=== PATIENT | female | born 1940 | race Caucasian/White ===

== ENCOUNTER → 2024-03-04 15:06 | Outpatient (REF) | payer MEDICARE, OTHER, SELFPAY | LOC: HWWDC 15:06 | PROVIDERS: ATTENDING PHYSICIAN Physician Assistant | DX: Z12.31 Encounter for screening mammogram for malignant neoplasm of breast (principal) | CPT/HCPCS: 77063; 77067 ==

== ENCOUNTER → 2024-03-09 12:12 | Outpatient (REF) | payer MEDICARE, OTHER, SELFPAY ==
[2024-03-09 15:51] LABS: % Basophils 0.6 % (0-2); % Eosinophils 1.8 % (0-6); % Immature Granulocytes 0.4 % (0-0.5); % Lymphocytes 30.3 % (20.5-51.1); % Monocytes 8.9 % (1.7-9.3); Absolute Basophils 0.1 10^3/uL (0-0.2); Absolute Eosinophils 0.2 10^3/uL (0-0.7); Absolute Lymphocytes 2.5 10^3/uL (1.2-3.4); Absolute Monocytes 0.8 10^3/uL (0.1-0.6); Absolute Neutrophils 4.9 10^3/uL (1.4-6.5); Hematocrit 37.2 % (37.0-47.0); Hemoglobin 13.2 g/dL (12.0-16.0); Mean Corp Hgb Conc. 35.5 g/dL (33.0-37.0); Mean Corpuscular Hgb 30.1 pg (27.0-31.0); Mean Corpuscular Volume 84.7 fL (81.0-99.0); Mean Platelet Volume 10.4 fL (7.4-10.4); Nucleated Red Blood Cells % 0 %; Platelet Count 300 10^3/uL (130-400); Red Blood Cell Count 4.39 10^6/uL (4.20-5.40); Red Cell Dist. Width 12.8 % (11.5-14.5); White Blood Cell Count 8.4 10^3/uL (4.8-10.8)
[2024-03-09 15:59] LABS: ALT (SGPT) 18 U/L (0-35); AST (SGOT) 25 U/L (14-36); Albumin 4.1 g/dl (3.5-5.0); Alkaline Phosphatase 42 U/L (38-126); Blood Urea Nitrogen 18 mg/dl (7-17); Calcium 9.5 mg/dl (8.4-10.2); Carbon Dioxide 30 mmol/L (22-30); Chloride 91 mmol/L (98-107); Glucose 134 mg/dl (70-99); HDL Cholesterol 85 mg/dl; LDL Cholesterol, Calculated 70 mg/dl; Potassium 3.7 mmol/L (3.5-5.1); Sodium 127 mmol/L (135-145); Total Bilirubin 1.3 mg/dl (0.2-1.3); Total Cholesterol 170 mg/dl (50-199); Total Protein 6.5 g/dl (6.3-8.2); Triglyceride 77 mg/dl (10-149); Very Low Density Lipoprotein 15 mg/dl (0-30); eGFR > 60.00
[2024-03-09 16:09] LABS: Microalbumin, Random Urine 0.9 mg/dl (0.6-1.7)
[2024-03-09 16:30] LABS: TSH Reflex To Free T4 1.15 uIU/ml (0.47-4.68)
[2024-03-10 09:41] LABS: Glycohemoglobin (HgbA1c) 6.6 % (4.0-5.6)
== END ==
LOC: HWLAB 12:12
PROVIDERS: ATTENDING PHYSICIAN Physician Assistant
DX: I10 Essential (primary) hypertension (principal); E78.00 Pure hypercholesterolemia, unspecified; E11.9 Type 2 diabetes mellitus without complications; F41.8 Other specified anxiety disorders; G62.9 Polyneuropathy, unspecified
CPT/HCPCS: 36415; 80053; 80061; 82043; 83036; 84443; 85025

== ENCOUNTER → 2024-06-15 11:39 | Outpatient (REF) | payer MEDICARE, OTHER, SELFPAY ==
[2024-06-15 15:39] LABS: Hematocrit 37.6 % (37.0-47.0); Hemoglobin 13.3 g/dL (12.0-16.0); Mean Corp Hgb Conc. 35.4 g/dL (33.0-37.0); Mean Corpuscular Hgb 30.9 pg (27.0-31.0); Mean Corpuscular Volume 87.2 fL (81.0-99.0); Mean Platelet Volume 10.2 fL (7.4-10.4); Platelet Count 282 10^3/uL (130-400); Red Blood Cell Count 4.31 10^6/uL (4.20-5.40); Red Cell Dist. Width 12.7 % (11.5-14.5); White Blood Cell Count 8.3 10^3/uL (4.8-10.8)
[2024-06-15 15:48] LABS: ALT (SGPT) 21 U/L (0-35); AST (SGOT) 25 U/L (14-36); Albumin 3.9 g/dl (3.5-5.0); Alkaline Phosphatase 36 U/L (38-126); Blood Urea Nitrogen 18 mg/dl (7-17); Calcium 9.5 mg/dl (8.4-10.2); Carbon Dioxide 30 mmol/L (22-30); Chloride 93 mmol/L (98-107); Glucose 137 mg/dl (70-99); HDL Cholesterol 97 mg/dl; LDL Cholesterol, Calculated 63 mg/dl; Potassium 4.1 mmol/L (3.5-5.1); Sodium 134 mmol/L (135-145); Total Bilirubin 1.2 mg/dl (0.2-1.3); Total Cholesterol 178 mg/dl (50-199); Total Protein 6.7 g/dl (6.3-8.2); Triglyceride 94 mg/dl (10-149); Very Low Density Lipoprotein 18 mg/dl (0-30); eGFR > 60.00
[2024-06-15 16:02] LABS: Protein/creatinine Ratio 0.2; Urine Protein 10 mg/dl
[2024-06-15 16:08] LABS: Microalbumin, Random Urine < 0.6 mg/dl (0.6-1.7)
[2024-06-15 16:19] LABS: TSH 1.48 uIU/ml (0.47-4.68)
[2024-06-16 09:34] LABS: Glycohemoglobin (HgbA1c) 6.5 % (4.0-5.6)
== END ==
LOC: HWLAB 11:39
PROVIDERS: ATTENDING PHYSICIAN Physician Assistant; FAMILY PHYSICIAN Physician Assistant
DX: E11.65 Type 2 diabetes mellitus with hyperglycemia (principal)
CPT/HCPCS: 36415; 80053; 80061; 82043; 82570; 83036; 84156; 84443; 85027

== ENCOUNTER 2024-07-05 12:00 | Emergency (ER) | payer MEDICARE, OTHER, SELFPAY ==
[2024-07-05 12:04] VITALS: BP 131/51
[2024-07-05 12:21] LABS: % Basophils 0.2 % (0-2); % Eosinophils 0.7 % (0-6); % Immature Granulocytes 0.4 % (0-0.5); % Monocytes 6.3 % (1.7-9.3); % Neutrophils 68.4 % (42.2-75.2); Absolute Eosinophils 0.1 10^3/uL (0-0.7); Absolute Lymphocytes 2.3 10^3/uL (1.2-3.4); Absolute Monocytes 0.6 10^3/uL (0.1-0.6); Absolute Neutrophils 6.5 10^3/uL (1.4-6.5); Hematocrit 37.6 % (37.0-47.0); Hemoglobin 13.7 g/dL (12.0-16.0); Mean Corp Hgb Conc. 36.4 g/dL (33.0-37.0); Mean Corpuscular Hgb 30.6 pg (27.0-31.0); Mean Corpuscular Volume 84.1 fL (81.0-99.0); Nucleated Red Blood Cells % 0 %; Platelet Count 251 10^3/uL (130-400); Red Blood Cell Count 4.47 10^6/uL (4.20-5.40); White Blood Cell Count 9.5 10^3/uL (4.8-10.8)
[2024-07-05 12:52] LABS: ALT (SGPT) 20 U/L (0-35); AST (SGOT) 24 U/L (14-36); Albumin 4.2 g/dl (3.5-5.0); Alkaline Phosphatase 33 U/L (38-126); Blood Urea Nitrogen 23 mg/dl (7-17); Carbon Dioxide 31 mmol/L (22-30); Chloride 90 mmol/L (98-107); Glucose 218 mg/dl (70-99); Potassium 3.9 mmol/L (3.5-5.1); Sodium 131 mmol/L (135-145); Total Bilirubin 1.7 mg/dl (0.2-1.3); Total Protein 6.7 g/dl (6.3-8.2); eGFR > 60.00
--- NOTE | 2024-07-05 14:51 | ED.GENMED ---
History of Present Illness
General
Chief Complaint: Fainting/Passed Out
Source: patient and family
Time Seen by Provider: 07/05/24 14:33
History of Present Illness
History of Present Illness:
This patient is an 83-year-old female who was in [place] today feeling perfectly well before she got there. She was listening to the sermon and started to feel diaphoretic, 'hot' and lightheaded like she might pass out. She alerted her daughter who
gave her some water. Her symptoms continued and she laid her head down. She insist that there was no actual loss of consciousness although her daughter thinks that she may have for a few seconds and she noted that she moved her left arm for a few
seconds as well. There was no incontinence or confusion. Patient denies any complaints preceding this, and thereafter. She denies headache, neck pain, back pain, chest pain or pressure, dyspnea, abdominal pain, numbness, tingling, focal weakness,
fever, chills, palpitations, or other complaint.
Past History
Past History
ED Past Medical History: Arrthythmia and Hypercholesterolemia
Social History
Tobacco: Non-smoker
Alcohol: None
Drug: None
Personal:
Living: with family
Family History
Family History: Other (Noncontributory)
Phy Exam
Physical Exam
Physical Exam:
GENERAL: Alert , in no apparent distress
EYE: pupils equal and reactive, no photophobia, EOMI
NECK: Supple, no significant adenopathy.
ENT: o/p clr, mmm.
CARDIAC: Regular rate and rhythm .
LUNGS: Clear breath sounds bilaterally, no acute respiratory distress, no wheezes/rales/rhonchi
ABDOMEN: Soft, without focal tenderness, no r/g, no cvat
NEUROLOGICAL: Alert and oriented, no focal neuro deficits, [id number] normal, motor 5 out of 5, sensory intact, cranial nerves II through XII intact
SKIN: Warm and dry, skin intact.
MUSCULOSKELETAL: No edema, well perfused.
PSYCH: Normal and appropriate interaction.
Course
Orders/Labs/Results
Orders:
Orders
07/05/24 12:02
Electrocardiogram (*1) Urgent
Reason for Study: Syncope
EKG- Treatment ONCE
07/05/24 12:16
CMP [Comprehensive Metabolic Panel] Urgent
Complete Blood Count/With Diff Urgent
Abnormal Lab Results
07/05/24
12:16
Sodium 131 L mmol/L
(135-145)
Chloride 90 L mmol/L
(98-107)
Carbon Dioxide 31 H mmol/L
(22-30)
BUN 23 H mg/dl
(7-17)
Glucose 218 H mg/dl
(70-99)
Total Bilirubin 1.7 H mg/dl
(0.2-1.3)
Alkaline Phosphatase 33 L U/L
(38-126)
07/05/24 12:16
07/05/24 12:16
Vital Signs
Initial and Last Documented VS:
Initial Vital Signs
Temp Pulse Resp BP Pulse Ox
97.6 F 67 16 131/51 100
07/05/24 12:04 07/05/24 12:04 07/05/24 12:04 07/05/24 12:04 07/05/24 12:04
Last Documented Vital Signs
Temp Pulse Resp BP Pulse Ox
97.6 F 73 19 131/51 99
07/05/24 12:04 07/05/24 14:48 07/05/24 14:45 07/05/24 12:04 07/05/24 14:45
*Critical Care Note
Total Time (30-74mins, 75-104mins- exclusive of procedures): Not Applicable
Update Note
Update Note:
Patient presents to the Emergency Department with syncope/near syncope
Number and Complexity of Problems Addressed at the Encounter
� Chronic conditions affecting care:
� Acute Exacerbation and/or Progression of Chronic Illness:
� Differential Diagnosis includes: But not limited to dehydration, electrolyte disorder, vasovagal response, etc. etc.
Amount and/or Complexity of Data to be Reviewed and Analyzed
� I performed an independent evaluation of and my interpretation is:
EKG: Read by me, normal sinus rhythm, normal rate, normal axis
CT:
Xrays:
Laboratory Studies: Mild nonspecific bilirubin elevation and hyperglycemia. Mild prerenal azotemia and hyponatremia.
Other:
� Review of other/old records reveals:
� Clinical information was obtained by an independent historian: Daughter and who are at bedside
� Prescriptions/Medications Considered but not given:
� Further testing considered but not performed:
Risk of Complications and/or Morbidity or Mortality of Patient Management
� Social determinants of health affecting care:
� Discussion with other providers (PCP, Hospitalists, Consultants, etc):
� Escalation of care including admission/observation vs risk of discharge considered: Mild electrolyte abnormality noted, do not suspect related to patient's symptoms that she is currently asymptomatic and this was a short-lived
5-minute event. Patient is tolerating p.o., recommend that patient drink here and at home to rehydrate. Strongly suspect vasovagal events, no 'red flag' findings in history physical or workup here. Patient will need close follow-up particular in
regards to lab testing results here.
357 PM Pt ate and drank here, looks well, watching tv, in nad. D/w pt import of f/u espec regarding nonspecific lab abnl this week and reasons to rted. s uspect vasovagal event.
ED Attending Note
-
Portions of this chart may have been created with voice recognition software.� Occasional wrong word or��sound alike� substitutions may have occurred due to the inherent limitations of voice recognition software.
Discharge Plan
Departure
Patient Disposition: Home (Routine Discharge)
Date of Disposition: 07/05/24
Time of Disposition: 15:54
Patient with high blood pressure during this ER visit?: Yes
Discharge Problem:
Syncope
Instructions: Syncope (Fainting) (DC), BLOOD PRESSURE
Prescriptions:
No Action
meclizine 25 MG tablet
25 mg PO Q8HPRN PRN (Reason: vertigo) Qty: 15 0RF
atorvastatin 10 MG tablet
10 mg PO QPM
lisinopril-hydrochlorothiazide 1 EACH tablet
1 ea PO DAILY
escitalopram oxalate 10 MG tablet
10 mg PO DAILY
docosahexaenoic acid-epa 1 CAP capsule
1 cap PO BID
ubidecarenone-omega 3-vit E 1 CAP capsule
1 cap PO DAILY
vitamins A,C,B-yjqp-chxdoe [PreserVision AREDS] 1 CAP capsule
1 cap PO BID
Referrals:
Kaylen Gutierrez PA-C [Family Provider] - Follow up in 2-3 days
Activity Restrictions/Additional Instructions:
IF YOU DEVELOP DIZZINESS, FEVER, CHEST PAIN, TROUBLE BREATHING, SEVERE HEADACHE, OR OTHER WORRISOME SIGNS, GO TO THE ER IMMEDIATELY!!
PLEASE SEE ATTACHED LAB RESULTS, HAVE FOLLOW UP WITH YOUR DOCTOR THIS WEEK REGARDING.
Interventions
Interventions:
*Risk Screen - Suicide Last Done: 07/05/24 12:04
*General Assessment Last Done: 07/05/24 12:04
*Neglect/Abuse Screening Last Done: 07/05/24 12:04
ED- Fall Risk Assessment Last Done: 07/05/24 14:44
*ED COVID-19 Vaccine History Last Done: 07/05/24 12:04
ED- Cardiac Assessment Last Done: 07/05/24 14:49
ED- Neurological Assessment Last Done: 07/05/24 14:45
Discharge Date and Time
Print Language: MALTESE
[2024-07-05 15:00] VITALS: BP 131/53
[2024-07-05 16:00] VITALS: BP 141/58
== END 2024-07-05 16:16 | disposition home or self-care (01) ==
LOC: EMR 12:00
PROVIDERS: Emergency Medicine; EMERGENCY PHYSICIAN Emergency Medicine; FAMILY PHYSICIAN Physician Assistant
DX: R55 Syncope and collapse (principal); E78.00 Pure hypercholesterolemia, unspecified
CPT/HCPCS: 99283; 80053; 85025; 93005

== ENCOUNTER → 2024-10-23 12:22 | Outpatient (REF) | payer MEDICARE, OTHER, SELFPAY ==
[2024-10-23 15:36] LABS: ALT (SGPT) 20 U/L (0-35); AST (SGOT) 23 U/L (14-36); Alkaline Phosphatase 42 U/L (38-126); Blood Urea Nitrogen 17 mg/dl (7-17); Calcium 9.4 mg/dl (8.4-10.2); Carbon Dioxide 33 mmol/L (22-30); Chloride 92 mmol/L (98-107); Glucose 132 mg/dl (70-99); HDL Cholesterol 90 mg/dl; LDL Cholesterol, Calculated 73 mg/dl; Potassium 3.8 mmol/L (3.5-5.1); Sodium 131 mmol/L (135-145); Total Bilirubin 1.5 mg/dl (0.2-1.3); Total Cholesterol 186 mg/dl (50-199); Total Protein 6.7 g/dl (6.3-8.2); Triglyceride 116 mg/dl (10-149); Very Low Density Lipoprotein 23 mg/dl (0-30); eGFR > 60.00
[2024-10-23 15:47] LABS: Protein/creatinine Ratio 0.1; Urine Protein 10 mg/dl
[2024-10-23 15:51] LABS: Microalbumin, Random Urine 0.8 mg/dl (0.6-1.7); Microalbumin/creatinine Ratio 8.7 mg/g
[2024-10-23 16:01] LABS: Hematocrit 38.5 % (37.0-47.0); Hemoglobin 13.6 g/dL (12.0-16.0); Mean Corp Hgb Conc. 35.3 g/dL (33.0-37.0); Mean Corpuscular Hgb 31.1 pg (27.0-31.0); Mean Corpuscular Volume 87.9 fL (81.0-99.0); Mean Platelet Volume 9.8 fL (7.4-10.4); Platelet Count 266 10^3/uL (130-400); Red Blood Cell Count 4.38 10^6/uL (4.20-5.40); Red Cell Dist. Width 12.8 % (11.5-14.5); White Blood Cell Count 7.2 10^3/uL (4.8-10.8)
[2024-10-24 08:59] LABS: Glycohemoglobin (HgbA1c) 6.7 % (4.0-5.6)
== END ==
LOC: HWLAB 12:22
PROVIDERS: ATTENDING PHYSICIAN Physician Assistant; FAMILY PHYSICIAN Physician Assistant
DX: E11.65 Type 2 diabetes mellitus with hyperglycemia (principal)
CPT/HCPCS: 36415; 80053; 80061; 82043; 82570; 83036; 84156; 84443; 85027

== ENCOUNTER → 2025-04-26 18:58 | Outpatient (REF) | payer MEDICARE, OTHER, SELFPAY | LOC: MRI 3T 18:58 | PROVIDERS: ATTENDING PHYSICIAN Physician Assistant | DX: M54.31 Sciatica, right side (principal) | CPT/HCPCS: 72148 ==

== ENCOUNTER → 2025-04-30 11:39 | Outpatient (REF) | payer MEDICARE, OTHER, SELFPAY ==
[2025-04-30 16:17] LABS: Hematocrit 37.5 % (37.0-47.0); Hemoglobin 13.4 g/dL (12.0-16.0); Mean Corp Hgb Conc. 35.7 g/dL (33.0-37.0); Mean Corpuscular Volume 85.4 fL (81.0-99.0); Platelet Count 312 10^3/uL (130-400); Red Cell Dist. Width 13.6 % (11.5-14.5)
[2025-04-30 16:32] LABS: ALT (SGPT) 19 U/L (0-35); AST (SGOT) 22 U/L (14-36); Albumin 4.4 g/dl (3.5-5.0); Alkaline Phosphatase 41 U/L (38-126); Blood Urea Nitrogen 19 mg/dl (7-17); Calcium 9.8 mg/dl (8.4-10.2); Carbon Dioxide 29 mmol/L (22-30); Chloride 95 mmol/L (98-107); Glucose 126 mg/dl (70-99); HDL Cholesterol 95 mg/dl; LDL Cholesterol, Calculated 78 mg/dl; Potassium 3.8 mmol/L (3.5-5.1); Sodium 129 mmol/L (135-145); Total Protein 7.1 g/dl (6.3-8.2); Very Low Density Lipoprotein 19 mg/dl (0-30); eGFR > 60.00
[2025-04-30 17:01] LABS: TSH 1.60 uIU/ml (0.47-4.68)
[2025-04-30 17:09] LABS: Microalb - Urine Creatinine 135.000 mg/dl
[2025-04-30 17:14] LABS: Microalbumin, Random Urine 1.4 mg/dl (0.6-1.7)
[2025-05-01 08:54] LABS: Glycohemoglobin (HgbA1c) 6.5 % (4.0-5.6)
== END ==
LOC: HWLAB 11:39
PROVIDERS: ATTENDING PHYSICIAN Physician Assistant
DX: E11.65 Type 2 diabetes mellitus with hyperglycemia (principal)
CPT/HCPCS: 36415; 80053; 80061; 82043; 82570; 83036; 84156; 84443; 85027